=== PATIENT | female | born 1990 | race African-American/Black ===

== ENCOUNTER 2019-02-19 16:20 | Emergency (ER) | payer MEDICAID ==
[2019-02-19] MEDS ORDERED: ACETAMINOPHEN 325 MG TABLET PO ONE (17:53)
--- NOTE | 2019-02-19 17:55 | ER Document Report ---
ED Medical Screen (RME) - General Chief Complaint: Vag Bleeding, +preg <12wks Stated Complaint: VAGINAL BLEEDING Time Seen by Provider: 02/19/19 17:52 Primary Care Provider: NAWAF ALANIZ MD [Primary Care Provider] - Follow up as needed Mode of Arrival: Ambulatory Information source: Patient Notes: 28-year-old female presents to ED for pelvic pain vaginal bleeding. She states the bleeding started about 315 this afternoon. She states she had a positive IUP last week but she started bleeding today. Last menstrual period was December 06. She states she does not sure of her blood type. Patient is alert oriented respirations regular and unlabored speaking in full sentences walks with even steady gait. I have greeted and performed a rapid initial assessment of this patient. A comprehensive ED assessment and evaluation of the patient, analysis of test results and completion of medical decision making process will be conducted by an additional ED providers. Dictation of this chart was performed using voice recognition software; therefore, there may be some unintended grammatical errors. TRAVEL OUTSIDE OF THE [place] IN LAST 30 DAYS: No - Related Data Allergies/Adverse Reactions: No Known Allergies Allergy (Verified 08/27/16 11:43) Past Medical History - Immunizations Immunizations up to date: Yes Hx Diphtheria, Pertussis, Tetanus Vaccination: Yes Doctor's Discharge - Discharge Referrals: NAWAF ALANIZ MD [Primary Care Provider] - Follow up as needed
[2019-02-19 18:39] LABS: APPEARANCE,URINE CLEAR; BILIRUBIN,URINE NEGATIVE (NEGATIVE); COLOR,URINE YELLOW; GLUCOSE, URINE NEGATIVE (NEGATIVE); KETONES,URINE TRACE mg/dL (NEGATIVE); LEUKOCYTE ESTERASE,URINE NEGATIVE (NEGATIVE); NITRITE,URINE NEGATIVE (NEGATIVE); PROTEIN,URINE NEGATIVE (NEGATIVE); URINE SPECIFIC GRAVITY 1.011; UROBILINOGEN,URINE NEGATIVE mg/dL (<2.0)
[2019-02-19 18:46] LABS: ABSOLUTE BASOPHILS # (AUTO) 0.1 10^3/uL (0.0-0.2); ABSOLUTE EOSINOPHILS # (AUTO) 0.1 10^3/uL (0.0-0.6); ABSOLUTE LYMPHOCYTES (AUTO) 3.1 10^3/uL (0.5-4.7); ABSOLUTE MONOCYTES (AUTO) 0.7 10^3/uL (0.1-1.4); ABSOLUTE NEUT (AUTO) 7.6 10^3/uL (1.7-8.2); BASOPHILS % (AUTO) 0.5 % (0-2); EOSINOPHILS % (AUTO) 0.9 % (0-6); HEMATOCRIT 35.7 % (36.0-47.0); HEMOGLOBIN 11.8 g/dL (12.0-15.5); LYMPHOCYTES % (AUTO) 26.7 % (13-45); MEAN CORPUSCULAR HEMOGLOBIN 29.7 pg (27.0-33.4); MEAN CORPUSCULAR HGB CONC 33.2 g/dL (32.0-36.0); MEAN CORPUSCULAR VOLUME 90 fl (80-97); MONOCYTES % (AUTO) 5.7 % (3-13); PLATELET COUNT 327 10^3/uL (150-450); RED BLOOD COUNT 3.98 10^6/uL (3.72-5.28); RED CELL DISTRIBUTION WIDTH 13.9 % (11.5-14.0); SEGMENTED NEUTROPHILS % (AUTO) 66.2 % (42-78); TOTAL CELLS COUNTED % (AUTO) 100 %; WHITE BLOOD COUNT 11.5 10^3/uL (4.0-10.5)
[2019-02-19 19:14] LABS: ALANINE AMINOTRANSFERASE 25 U/L (9-52); ALBUMIN 4.3 g/dL (3.5-5.0); ALKALINE PHOSPHATASE 24 U/L (38-126); ANION GAP 12 (5-19); ASPARTATE AMINO TRANSFERASE 19 U/L (14-36); BILIRUBIN,DIRECT 0.1 mg/dL (0.0-0.4); BILIRUBIN,TOTAL 0.1 mg/dL (0.2-1.3); BLOOD UREA NITROGEN 7 mg/dL (7-20); CALCIUM 9.9 mg/dL (8.4-10.2); CARBON DIOXIDE 27 mmol/L (22-30); CHLORIDE 99 mmol/L (98-107); GLUCOSE 77 mg/dL (75-110); POTASSIUM 3.9 mmol/L (3.6-5.0); SODIUM 137.8 mmol/L (137-145); TOTAL PROTEIN 7.5 g/dL (6.3-8.2)
--- NOTE | 2019-02-19 20:10 | RADIOLOGY REPORT (SQ) ---
US PELVIS HISTORY: Early . Pelvic pain. COMPARISON: None. TECHNIQUE: Grayscale, color Doppler, and spectral Doppler ultrasound images of the pelvis were obtained. FINDINGS: There is an intrauterine gestational sac with a yolk sac and pole visualized. The crown-rump length measures 3.29 cm corresponding to 10 weeks 1 day of . The heart rate is 169 bpm. The cervix measures 3 cm in length. There is an adjacent 1.3 cm subchorionic hemorrhage. IMPRESSION: 1. Single live IUP with estimated gestational age 10 weeks 1 day. 2. Small adjacent subchronic hemorrhage; attention on follow-up imaging is suggested.
--- NOTE | 2019-02-19 21:23 | ER Document Report ---
ED GI/ - General Chief Complaint: Vag Bleeding, +preg <12wks Stated Complaint: VAGINAL BLEEDING Time Seen by Provider: 02/19/19 17:52 Primary Care Provider: NAWAF ALANIZ MD [ACTIVE STAFF] - Follow up as needed Mode of Arrival: Ambulatory Notes: Patient is a 28 year old female, at uncertain gestational age, that comes to the Emergency Department for chief complaint of vaginal bleeding and cramping that started this afternoon. Bleeding is mild with small amount of spotting. Denies heavy bleeding, denies trauma, denies fever/chills, denies nausea/vomiting. She denies any diagnosed medical problems except for preeclampsia during her first . She denies any complaints or medical history otherwise. TRAVEL OUTSIDE OF THE [place] IN LAST 30 DAYS: No - Related Data Allergies/Adverse Reactions: No Known Allergies Allergy (Verified 08/27/16 11:43) Past Medical History - General Information source: Patient - Social History Smoking Status: Current Every Day Smoker Chew tobacco use (# tins/day): No Smoking Education Provided: Yes - <3 min Frequency of alcohol use: None Drug Abuse: None Lives with: Family Family History: Reviewed & Not Pertinent Patient has suicidal ideation: No Patient has homicidal ideation: No Renal/ Medical History: Denies: Hx Peritoneal Dialysis Surgical Hx: Negative - Immunizations Immunizations up to date: Yes Hx Diphtheria, Pertussis, Tetanus Vaccination: Yes Review of Systems - Review of Systems Constitutional: No symptoms reported EENT: No symptoms reported Cardiovascular: No symptoms reported Respiratory: No symptoms reported Gastrointestinal: See HPI Genitourinary: See HPI Female Genitourinary: See HPI Musculoskeletal: No symptoms reported Skin: No symptoms reported Hematologic/Lymphatic: No symptoms reported Neurological/Psychological: No symptoms reported Physical Exam - Vital signs Vitals: Temp Pulse Resp BP Pulse Ox 98.7 F 77 16 142/84 H 98 02/19/19 17:03 02/19/19 17:03 02/19/19 17:03 02/19/19 17:03 02/19/19 17:03 - Notes Notes: GENERAL: Alert, interacts well. No acute distress. HEAD: Normocephalic, atraumatic. EYES: Pupils equal, round, and reactive to light. Extraocular movements intact. ENT: Oral mucosa moist, tongue midline. Oropharynx unremarkable. Airway patent. Nares patent, no nasal septal hematoma, TM's intact. NECK: Full range of motion. Supple. Trachea midline. LUNGS: Clear to auscultation bilaterally, no wheezes, rales, or rhonchi. No respiratory distress. HEART: Regular rate and rhythm. No murmur ABDOMEN: Soft, non-tender. Non-distended. Bowel sounds present in all 4 quadrants. GENITOURINARY: Deferred EXTREMITIES: Moves all 4 extremities spontaneously. No edema, normal radial and dorsalis pedis pulses bilaterally. No cyanosis. BACK: no cervical, thoracic, lumbar midline tenderness. No saddle anesthesia, normal distal neurovascular exam. NEUROLOGICAL: Alert and oriented x3. Normal speech. Cranial nerves II through XII grossly intact. PSYCH: Normal affect, normal mood. SKIN: Warm, dry, normal turgor. No rashes or lesions noted. Course - Re-evaluation Re-evalutation: Patient well-appearing. Unremarkable vital signs. CBC unremarkable. Chemistry nonspecific. hCG elevated. Urinalysis nonspecific. Patient's abdomen is completely benign. She currently has no complaints. I discussed ultrasound, this shows small subchorionic bleed, living intrauterine , no other abnormalities noted at this time. RhoGam is not indicated. Discussed precautions, provided with work-release, discussed follow-up and return precautions as well. Patient states understanding and agreement. - Vital Signs Vital signs: Temp Pulse Resp BP Pulse Ox 98.1 F 72 20 132/60 H 100 02/19/19 22:32 02/19/19 22:32 02/19/19 22:32 02/19/19 22:32 02/19/19 22:32 - Laboratory Result Diagrams: 02/19/19 18:21 02/19/19 18:21 Laboratory results interpreted by me: 02/19/19 02/19/19 02/19/19 18:21 18:21 18:21 WBC 11.5 H Hgb 11.8 L Hct 35.7 L Total Bilirubin 0.1 L Alkaline Phosphatase 24 L Beta HCG, Quant 66339.00 H Urine Ketones TRACE H Urine Blood SMALL H Discharge - Discharge Clinical Impression: Vaginal bleeding before 22 weeks gestation, Pelvic cramping Condition: Stable Disposition: HOME, SELF-CARE Additional Instructions: Your work-up shows a subchorionic hemorrhage as we discussed. This frequently resolves with time. Please follow-up with your STRETCH PRESS OPERATOR for additional monitoring and management. I recommend pelvic rest to help this resolve, avoid any heavy lifting, jumping, running, or significant physical activity including sexual intercourse until cleared by STRETCH PRESS OPERATOR. Return for any concerning symptoms including severe worsening pain, heavy bleeding, passing out, or any other concerning or worsening symptoms. Forms: Return to Work Referrals: NAWAF ALANIZ MD [ACTIVE STAFF] - Follow up as needed
[2019-02-19 22:36] VITALS: BP 142/84
== END 2019-02-19 22:36 | disposition home or self-care (01) ==
LOC: ER 16:20
DX: O46.91 Antepartum hemorrhage, unspecified, first trimester (principal); O26.891 Other specified pregnancy related conditions, first trimester; R10.2 Pelvic and perineal pain; O99.331 Smoking (tobacco) complicating pregnancy, first trimester; Z3A.18 18 weeks gestation of pregnancy
CPT/HCPCS: 99284; 86900; 86901; 36415; 84702; 85025; 80053; 81001; 76817; J3490

== ENCOUNTER 2019-08-07 14:16 | Outpatient (CLI) | payer MEDICAID ==
[2019-08-07] MEDS ORDERED: ACETAMINOPHEN 325 MG TABLET PO PRN (14:23)
[2019-08-07 14:51] LABS: APPEARANCE,URINE CLEAR; BILIRUBIN,URINE NEGATIVE (NEGATIVE); COLOR,URINE YELLOW; GLUCOSE, URINE NEGATIVE (NEGATIVE); KETONES,URINE NEGATIVE (NEGATIVE); LEUKOCYTE ESTERASE,URINE NEGATIVE (NEGATIVE); NITRITE,URINE NEGATIVE (NEGATIVE); PROTEIN,URINE NEGATIVE (NEGATIVE); URINE SPECIFIC GRAVITY 1.003; UROBILINOGEN,URINE NEGATIVE mg/dL (<2.0)
[2019-08-07 15:06] LABS: URINE AMPHETAMINES SCREEN NEGATIVE; URINE BARBITURATES SCREEN NEGATIVE; URINE BENZODIAZEPINES SCREEN NEGATIVE; URINE COCAINE SCREEN NEGATIVE; URINE METHADONE SCREEN NEGATIVE; URINE PHENCYCLIDINE SCREEN NEGATIVE
[2019-08-07] MEDS ORDERED: ACETAMINOPHEN 325 MG TABLET ONE (15:06)
[2019-08-07 15:08] LABS: URINE MARIJUANA (THC) SCREEN UNCONFIRMED POSITIVE
[2019-08-07 15:12] LABS: HEMATOCRIT 32.6 % (36.0-47.0); HEMOGLOBIN 11.1 g/dL (12.0-15.5); MEAN CORPUSCULAR HEMOGLOBIN 30.4 pg (27.0-33.4); MEAN CORPUSCULAR VOLUME 90 fl (80-97); PLATELET COUNT 284 10^3/uL (150-450); RED BLOOD COUNT 3.64 10^6/uL (3.72-5.28); RED CELL DISTRIBUTION WIDTH 13.8 % (11.5-14.0); WHITE BLOOD COUNT 12.2 10^3/uL (4.0-10.5)
[2019-08-07 15:20] LABS: UR PRO/CREAT RATIO RESULT 0.4 mg/mg (0.0-0.2); URINE CREATININE 40.8 mg/dL (16-327); URINE PROTEIN 17.7 mg/dL (<12)
[2019-08-07 15:38] LABS: ALBUMIN 3.6 g/dL (3.5-5.0); ALKALINE PHOSPHATASE 84 U/L (38-126); ANION GAP 8 (5-19); ASPARTATE AMINO TRANSFERASE 19 U/L (14-36); BILIRUBIN,DIRECT 0.1 mg/dL (0.0-0.4); BILIRUBIN,TOTAL 0.3 mg/dL (0.2-1.3); BLOOD UREA NITROGEN 7 mg/dL (7-20); CALCIUM 9.2 mg/dL (8.4-10.2); CARBON DIOXIDE 23 mmol/L (22-30); CHLORIDE 104 mmol/L (98-107); GLUCOSE 92 mg/dL (75-110); POTASSIUM 4.2 mmol/L (3.6-5.0); TOTAL PROTEIN 6.8 g/dL (6.3-8.2)
[2019-08-07] MEDS ORDERED: NIFEDIPINE 30 MG TAB.ER.24 PO ONE (16:10)
--- NOTE | 2019-08-07 16:52 | Non Stress Test Report ---
Non Stress Test Datetime Report Generated by CPN: 08/07/2019 16:51 DEMOGRAPHIC EGA NST: 34.6 INDICATION Indication for Study: Ordered by Provider Indication for Study (NST) Other: PRE-E W/U MONITORING Monitor Explained: Monitor Explained; Test Explained; Patient Verbalized Understanding Time on Monitor: 08/07/2019 14:30 NST INTERVENTIONS NST Interventions: PO Hydration; Reposition Patient BABY A: [id number] BABY A Movement : Present Contraction Frequency : 0 NST Review: Meets Criteria for Reactive NST NST Review and Verified By : M Sasala RN NST Results: Reactive NST REPORT Report Trigger: Send Report
== END 2019-08-07 16:23 | disposition home or self-care (01) ==
LOC: LC 14:16
PROVIDERS: ATTEND Obstetrics & Gynecology
PROC: 4A1HXCZ Monitoring of Products of Conception, Cardiac Rate, External Approach (ICD-10-PCS; principal; 2019-08-07)
DX: Z36.89 Encounter for other specified antenatal screening (principal); Z13.6 Encounter for screening for cardiovascular disorders; Z3A.36 36 weeks gestation of pregnancy
CPT/HCPCS: 59025; 36415; 83615; 84156; 84550; 82570; 85027; 80053; 81001; 80307; G0480 ×2; J3490; 80349

== ENCOUNTER 2019-08-08 17:14 | Observation (INO) | payer MEDICAID ==
[2019-08-08 19:06] LABS: URINE PROTEIN 14.7 mg/dL (<12)
[2019-08-08 19:08] LABS: 24 HOUR URINE PROTEIN RESULT 426 mg/day (42-225)
[2019-08-08] MEDS ORDERED: ONDANSETRON HCL INJ/PF 4 MG/2 ML SDV IV PRN (19:19)
[2019-08-08] MEDS ORDERED: RINGERS SOLUTION,LACTATED 1,000 ML IV ONE (19:19)
[2019-08-08] MEDS ORDERED: BETAMET ACET/BETAMET NA INJ 6 MG/1 ML IM ONE (19:21)
[2019-08-08] MEDS ORDERED: BETAMET ACET/BETAMET NA INJ 6 MG/1 ML ONE ×2 (19:23→19:56)
[2019-08-08] MEDS ORDERED: ONDANSETRON HCL INJ/PF 4 MG/2 ML SDV ONE (19:23)
--- NOTE | 2019-08-08 19:30 | Non Stress Test Report ---
Non Stress Test Datetime Report Generated by CPN: 08/08/2019 19:29 DEMOGRAPHIC Test Number: 2 EGA NST: 35.0 INDICATION Indication for Study: Gestational Hypertension VITAL SIGNS Temperature - NST: 99.4 Pulse - NST: 74 RESP - NST: 16 NBPSYS NST: 118 NBPDIA NST: 60 MONITORING Monitor Explained: Monitor Explained; Test Explained; Patient Verbalized Understanding Time on Monitor: 08/08/2019 17:24 Time off Monitor: 08/08/2019 18:30 NST Duration: 66 NST INTERVENTIONS NST Interventions: PO Hydration Physician Notified NST: Dr Sandoval BABY A: [id number] BABY A Movement : Present Contraction Frequency : 0 FHR Baseline : 125 Accelerations : 15X15 Variability : Moderate 6-25bpm NST Review: Meets Criteria for Reactive NST NST Review and Verified By : Carolyn Camp RNC NST Results: Reactive NST REPORT Report Trigger: Send Report
[2019-08-08] MEDS ORDERED: BUTALB/ACETAMINOPHEN/CAFFEINE 1 TAB EACH ONE (19:47)
[2019-08-08] MEDS: BUTALB/ACETAMINOPHEN/CAFFEINE 1 TAB EACH PO PRN (19:48)
[2019-08-08] MEDS: RINGERS SOLUTION,LACTATED 1,000 ML IV PRN (19:49)
[2019-08-08 19:54] LABS: HEMATOCRIT 31.3 % (36.0-47.0); HEMOGLOBIN 10.7 g/dL (12.0-15.5); MEAN CORPUSCULAR HEMOGLOBIN 30.6 pg (27.0-33.4); MEAN CORPUSCULAR HGB CONC 34.3 g/dL (32.0-36.0); MEAN CORPUSCULAR VOLUME 89 fl (80-97); PLATELET COUNT 295 10^3/uL (150-450); RED BLOOD COUNT 3.51 10^6/uL (3.72-5.28); RED CELL DISTRIBUTION WIDTH 13.7 % (11.5-14.0); WHITE BLOOD COUNT 14.1 10^3/uL (4.0-10.5)
[2019-08-08 20:04] LABS: ALBUMIN 3.7 g/dL (3.5-5.0); ALKALINE PHOSPHATASE 92 U/L (38-126); ANION GAP 11 (5-19); ASPARTATE AMINO TRANSFERASE 20 U/L (14-36); BILIRUBIN,DIRECT 0.1 mg/dL (0.0-0.4); BILIRUBIN,TOTAL 0.3 mg/dL (0.2-1.3); BLOOD UREA NITROGEN 5 mg/dL (7-20); CALCIUM 9.5 mg/dL (8.4-10.2); CARBON DIOXIDE 21 mmol/L (22-30); CHLORIDE 105 mmol/L (98-107); GLUCOSE 79 mg/dL (75-110); POTASSIUM 4.4 mmol/L (3.6-5.0); TOTAL PROTEIN 6.9 g/dL (6.3-8.2); URIC ACID 3.8 mg/dL (2.5-6.2)
[2019-08-08] MEDS ORDERED: ZOLPIDEM TARTRATE 5 MG TABLET PO PRN (21:01)
[2019-08-09] MEDS: FAMOTIDINE 20 MG TABLET PO SCH ×3 (00:11→21:00)
[2019-08-09] MEDS: ACETAMINOPHEN 325 MG TABLET PO PRN ×3 (03:41→20:52)
[2019-08-09] MEDS: RINGERS SOLUTION,LACTATED 1,000 ML IV PRN (03:44)
[2019-08-09 06:13] LABS: HEMATOCRIT 31.9 % (36.0-47.0); HEMOGLOBIN 10.7 g/dL (12.0-15.5); MEAN CORPUSCULAR HEMOGLOBIN 30.2 pg (27.0-33.4); MEAN CORPUSCULAR HGB CONC 33.5 g/dL (32.0-36.0); MEAN CORPUSCULAR VOLUME 90 fl (80-97); PLATELET COUNT 262 10^3/uL (150-450); RED BLOOD COUNT 3.54 10^6/uL (3.72-5.28); RED CELL DISTRIBUTION WIDTH 13.9 % (11.5-14.0); WHITE BLOOD COUNT 12.4 10^3/uL (4.0-10.5)
[2019-08-09] MEDS ORDERED: BETAMET ACET/BETAMET NA INJ 6 MG/1 ML IM ONE (07:30)
--- NOTE | 2019-08-09 09:06 | PDOC PROGRESS REPORT ---
Subjective Progress Note for:: 08/09/19 Subjective:: pt states she feels better Reason For Visit: chronic HTN Physical Exam - Physical Exam Vital Signs: Temp Pulse Resp BP Pulse Ox 98.1 F 88 16 143/80 H 99 08/09/19 07:51 08/09/19 07:51 08/09/19 07:51 08/09/19 07:51 08/09/19 07:51 Intake & Output 08/08/19 08/09/19 08/10/19 06:59 06:59 06:59 Intake Total 1230 Balance 1230 Weight 119.2 kg General appearance: PRESENT: no acute distress Respiratory exam: PRESENT: clear to auscultation dash Cardiovascular exam: PRESENT: RRR GI/Abdominal exam: PRESENT: soft Result Laboratory Results: 08/09/19 05:54 08/08/19 19:38 08/07/19 08/08/19 08/08/19 16:00 19:38 19:38 WBC 14.1 H RBC 3.51 L Hgb 10.7 L Hct 31.3 L MCV 89 MCH 30.6 MCHC 34.3 RDW 13.7 Plt Count 295 Sodium 136.6 L Potassium 4.4 Chloride 105 Carbon Dioxide 21 L Anion Gap 11 BUN 5 L Creatinine 0.75 Est GFR ( Amer) > 60 Glucose 79 Uric Acid 3.8 Calcium 9.5 Total Bilirubin 0.3 AST 20 Alkaline Phosphatase 92 Total Protein 6.9 Albumin 3.7 Ur 24 Hour Volume 2900 Ur Total Protein 24 Hr 426 H 08/09/19 05:54 WBC 12.4 H RBC 3.54 L Hgb 10.7 L Hct 31.9 L MCV 90 MCH 30.2 MCHC 33.5 RDW 13.9 Plt Count 262 Sodium Potassium Chloride Carbon Dioxide Anion Gap BUN Creatinine Est GFR ( Amer) Glucose Uric Acid Calcium Total Bilirubin AST Alkaline Phosphatase Total Protein Albumin Ur 24 Hour Volume Ur Total Protein 24 Hr Assessment & Plan - Diagnosis (1) Obesity affecting in third trimester Is this a current diagnosis for this admission?: Yes (2) Preeclampsia complicating hypertension Is this a current diagnosis for this admission?: Yes - Time Time Spent with patient: Less than 15 minutes Medications reviewed and adjusted accordingly: Yes - Plan Summary Plan Summary: second dose of steroids today repeat labs in am and dispose pending condition and labs
[2019-08-09] MEDS: VALACYCLOVIR HCL 500 MG TABLET PO SCH (09:32)
[2019-08-09] MEDS: NIFEDIPINE 30 MG TAB.ER.24 PO SCH (09:32)
[2019-08-09] MEDS ORDERED: INFLUENZA QUAD (6MOS+) 2019-20 VAC 0.5 ML SYR IM ONE (10:00)
--- NOTE | 2019-08-09 11:34 | Admission Physical ---
Datetime Report Generated by CPN: 08/09/2019 11:34 CURRENT ADMISSION Chief Complaint: Signs/Symptoms Gestational HTN Chief Complaint Other: KULKARNI 4/5 Admit Impression : , Intrauterine Admit Plan: Observation/Evaluation ALLERGIES Medication Allergies: No Medication Allergies: No Known Allergies (08/08/2019) Medication Allergies: No Known Allergies (08/07/2019) Medication Allergies: No Known Allergies (08/27/2016) Latex: No Latex Allergies OBSTETRICAL HISTORY EDC: 09/12/2019 00:00 : 2 Para: 1 Term: 1 : 1 SAB: 0 IAB: 0 Ectopic: 0 Livin Cesareans: 1 VBACs: 0 Multiple Births: 0 Hx Previous C/S: Yes PIH: Yes Current Procedures: Ultrasound; NST Obstetrical History Comments: G (Annotations: Data stored by [facility] on behalf of user) SEE RECORDS Alcohol: No Marijuana : Yes Marijuana Frequency: Occasional Last Used: 07/26/2019 00:00 Previous Treatment: None Other Illicit Drugs: No Cigarettes: Current Everyday Smoker. [id number] Cigarette Frequency: 5 - 10 per day Advised to Stop: Yes PHYSICAL EXAM General: Normal HEENT: Normal Neurologic: Normal Thyroid: Deferred Heart: Normal Lungs: Normal Breast: Deferred Back: Normal Abdomen: Normal Genitourinary Exam: Normal Extremities: Normal DTRs: Normal Pelvic Type: Adequate Vital Signs: Reviewed MEMBRANES Membranes: Intact FETUS A EGA: 35.0 Monitoring: External US FHR- Baseline: 145 Variability: Moderate 6-25bpm Accelerations: 15X15 Decelerations: None FHR Category: Category I Admit Comment: 26yo at 35wks presents for return of 24 hour UTP. she had preE with 1st and then failed IOL with C/S. SHe has a 4/5 KULKARNI that she has had since yesterday but has been vomiting all day. Will admit for observation and treat KULKARNI and nausea/vomiting and try to get KULKARNI to resolve. BPs are doing well on Labetolol and Procardia. CHTN on labetolol and procardia added yesterday on day prior. repeat labs in am. 24 hr UTP was over 400 but her baseline April 2019 was 472mg. Will re-eval in am. PLANS FOR LABOR AND DELIVERY Labor and Delivery: None Pain Management: Spinal Feeding Preference: Breast Benefit of Breast Feed Discussed: Yes Circumcision: N/A INFORMED CONSENT Informed Consent Obtained: Section Delivery; Risks, Benefits and Alternatives Discussed Signature: with User ID: [email or web address]
[2019-08-09] MEDS: BUTALB/ACETAMINOPHEN/CAFFEINE 1 TAB EACH PO PRN (16:16)
[2019-08-09] MEDS ORDERED: HYDROXYZINE PAMOATE 25 MG CAPSULE PO ONE ×2 (19:30→21:00)
[2019-08-10] MEDS: ACETAMINOPHEN 325 MG TABLET PO PRN (07:55)
[2019-08-10] MEDS: RINGERS SOLUTION,LACTATED 1,000 ML IV PRN (07:55)
[2019-08-10 08:08] LABS: ALKALINE PHOSPHATASE 77 U/L (38-126); ASPARTATE AMINO TRANSFERASE 15 U/L (14-36); BILIRUBIN,DIRECT 0.1 mg/dL (0.0-0.4); BILIRUBIN,TOTAL 0.2 mg/dL (0.2-1.3); TOTAL PROTEIN 5.8 g/dL (6.3-8.2)
[2019-08-10] MEDS: VALACYCLOVIR HCL 500 MG TABLET PO SCH (10:30)
[2019-08-10] MEDS: NIFEDIPINE 30 MG TAB.ER.24 PO SCH (10:30)
[2019-08-10] MEDS: FAMOTIDINE 20 MG TABLET PO SCH (10:31)
--- NOTE | 2019-08-10 11:18 | Discharge Summary ---
Discharge Summary (SDC) - Discharge Final Diagnosis: Pyelonephritis in pregancy Date of Surgery: 08/10/19 Discharge Date: 08/10/19 Condition: Stable Treatment or Instructions: Hydrate F/u in office within 1 wk Referrals: [facility] [Provider Group] Discharge Diet: Regular Discharge Activity: Activity As Tolerated Home Care Assistance: None Needed Report the Following to Your Physician Immediately: Nausea, Vomiting, Increase in Pain, Fever over 101 Degrees, Swelling
[2019-08-10] MEDS ORDERED: DIPHENHYDRAMINE HCL 50 MG CAPSULE PO ONE (12:13)
[2019-08-10] MEDS ORDERED: METOCLOPRAMIDE HCL 10 MG TABLET PO ONE (12:13)
[2019-08-10] MEDS ORDERED: DEXAMETHASONE 4 MG TABLET PO ONE (12:14)
[2019-08-10 15:36] VITALS: BP 144/71
== END 2019-08-10 15:50 | disposition home or self-care (01) ==
LOC: LC 17:14 → EEVIPCON 21:03 → LR 21:03 → 2S 22:40
PROVIDERS: ADMIT Student in an Organized Health Care Education/Training Program; ATTEND Student in an Organized Health Care Education/Training Program
DX: O11.3 Pre-existing hypertension with pre-eclampsia, third trimester (principal); O10.913 Unspecified pre-existing hypertension complicating pregnancy, third trimester; O99.213 Obesity complicating pregnancy, third trimester; E66.9 Obesity, unspecified; O99.333 Smoking (tobacco) complicating pregnancy, third trimester; F17.210 Nicotine dependence, cigarettes, uncomplicated; Z3A.35 35 weeks gestation of pregnancy; Z87.59 Personal history of other complications of pregnancy, childbirth and the puerperium; Z79.82 Long term (current) use of aspirin; Z79.899 Other long term (current) drug therapy; Z23 Encounter for immunization
CPT/HCPCS: 59025 ×2; 36415 ×3; 83615; 84156; 84550; 85027 ×2; 87077; 80076; 80053; 87081; 90686; G0378 ×4; J3490 ×15; J0702 ×2; J2405; J7120 ×2; 90471; G0008; J8540

== ENCOUNTER 2019-08-12 20:06 | Outpatient (CLI) | payer MEDICAID ==
--- NOTE | 2019-08-12 20:15 | Admission Physical ---
Datetime Report Generated by CPN: 08/12/2019 20:15 CURRENT ADMISSION Chief Complaint: Signs/Symptoms Gestational HTN Chief Complaint Other: KULKARNI 4/5 Admit Impression : , Intrauterine Admit Plan: Observation/Evaluation ALLERGIES Medication Allergies: No Medication Allergies: No Known Allergies (08/08/2019) Latex: No Latex Allergies OBSTETRICAL HISTORY EDC: 09/12/2019 00:00 : 2 Para: 1 Term: 1 : 1 SAB: 0 IAB: 0 Ectopic: 0 Livin Cesareans: 1 VBACs: 0 Multiple Births: 0 Hx Previous C/S: Yes PIH: Yes Current Procedures: Ultrasound; NST Obstetrical History Comments: G (Annotations: Data stored by N on behalf of user) SEE RECORDS Alcohol: No Marijuana : Yes Marijuana Frequency: Occasional Last Used: 07/26/2019 00:00 Previous Treatment: None Other Illicit Drugs: No Cigarettes: Current Everyday Smoker. [id number] Cigarette Frequency: 5 - 10 per day Advised to Stop: Yes PHYSICAL EXAM General: Normal HEENT: Normal Neurologic: Normal Thyroid: Deferred Heart: Normal Lungs: Normal Breast: Deferred Back: Normal Abdomen: Normal Genitourinary Exam: Normal Extremities: Normal DTRs: Normal Pelvic Type: Adequate Vital Signs: Reviewed MEMBRANES Membranes: Intact FETUS A EGA: 35.0 Monitoring: External US FHR- Baseline: 145 Variability: Moderate 6-25bpm Accelerations: 15X15 Decelerations: None FHR Category: Category I Admit Comment: 26yo at 35wks presents for return of 24 hour UTP. she had preE with 1st and then failed IOL with C/S. SHe has a 4/5 KULKARNI that she has had since yesterday but has been vomiting all day. Will admit for observation and treat KULKARNI and nausea/vomiting and try to get KULKARNI to resolve. BPs are doing well on Labetolol and Procardia. CHTN on labetolol and procardia added yesterday on day prior. repeat labs in am. 24 hr UTP was over 400 but her baseline April 2019 was 472mg. Will re-eval in am. PLANS FOR LABOR AND DELIVERY Labor and Delivery: None Pain Management: Spinal Feeding Preference: Breast Benefit of Breast Feed Discussed: Yes Circumcision: N/A INFORMED CONSENT Informed Consent Obtained: Section Delivery; Risks, Benefits and Alternatives Discussed Signature: with User ID: [email or web address]
[2019-08-12 20:45] LABS: APPEARANCE,URINE CLEAR; BILIRUBIN,URINE NEGATIVE (NEGATIVE); COLOR,URINE YELLOW; GLUCOSE, URINE NEGATIVE (NEGATIVE); KETONES,URINE NEGATIVE (NEGATIVE); LEUKOCYTE ESTERASE,URINE NEGATIVE (NEGATIVE); NITRITE,URINE NEGATIVE (NEGATIVE); PROTEIN,URINE NEGATIVE (NEGATIVE); URINE SPECIFIC GRAVITY 1.015; UROBILINOGEN,URINE NEGATIVE mg/dL (<2.0)
[2019-08-12] MEDS ORDERED: DIPHENHYDRAMINE HCL 25 MG CAPSULE ONE (20:47)
[2019-08-12] MEDS ORDERED: METOCLOPRAMIDE HCL 10 MG TABLET PO ONE (20:50)
[2019-08-12 20:58] LABS: URINE AMPHETAMINES SCREEN NEGATIVE; URINE BENZODIAZEPINES SCREEN NEGATIVE; URINE COCAINE SCREEN NEGATIVE; URINE METHADONE SCREEN NEGATIVE; URINE PHENCYCLIDINE SCREEN NEGATIVE
[2019-08-12] MEDS ORDERED: METOCLOPRAMIDE HCL ORAL SOLN 10 MG/10 ML UDCUP ONE (21:01)
[2019-08-12 21:02] LABS: URINE BARBITURATES SCREEN UNCONFIRMED POSITIVE; URINE MARIJUANA (THC) SCREEN UNCONFIRMED POSITIVE
[2019-08-12] MEDS ORDERED: METOCLOPRAMIDE HCL ORAL SOLN 10 MG/10 ML UDCUP PO ONE (21:04)
[2019-08-12] MEDS ORDERED: DIPHENHYDRAMINE HCL 25 MG CAPSULE PO ONE (21:15)
[2019-08-12 21:22] LABS: ABSOLUTE EOSINOPHILS # (AUTO) 0.1 10^3/uL (0.0-0.6); ABSOLUTE LYMPHOCYTES (AUTO) 3.5 10^3/uL (0.5-4.7); ABSOLUTE NEUT (AUTO) 10.1 10^3/uL (1.7-8.2); BASOPHILS % (AUTO) 0.1 % (0-2); EOSINOPHILS % (AUTO) 0.7 % (0-6); HEMATOCRIT 30.6 % (36.0-47.0); HEMOGLOBIN 10.4 g/dL (12.0-15.5); LYMPHOCYTES % (AUTO) 23.6 % (13-45); MEAN CORPUSCULAR HEMOGLOBIN 30.4 pg (27.0-33.4); MEAN CORPUSCULAR HGB CONC 33.9 g/dL (32.0-36.0); MEAN CORPUSCULAR VOLUME 90 fl (80-97); MONOCYTES % (AUTO) 6.9 % (3-13); PLATELET COUNT 264 10^3/uL (150-450); RED BLOOD COUNT 3.42 10^6/uL (3.72-5.28); RED CELL DISTRIBUTION WIDTH 13.7 % (11.5-14.0); SEGMENTED NEUTROPHILS % (AUTO) 68.7 % (42-78); TOTAL CELLS COUNTED % (AUTO) 100 %; WHITE BLOOD COUNT 14.8 10^3/uL (4.0-10.5)
[2019-08-12 21:26] LABS: ALBUMIN 3.3 g/dL (3.5-5.0); ALKALINE PHOSPHATASE 81 U/L (38-126); ANION GAP 9 (5-19); ASPARTATE AMINO TRANSFERASE 16 U/L (14-36); BILIRUBIN,DIRECT 0.1 mg/dL (0.0-0.4); BILIRUBIN,TOTAL 0.1 mg/dL (0.2-1.3); BLOOD UREA NITROGEN 8 mg/dL (7-20); CALCIUM 8.5 mg/dL (8.4-10.2); CARBON DIOXIDE 25 mmol/L (22-30); CHLORIDE 104 mmol/L (98-107); GLUCOSE 79 mg/dL (75-110); POTASSIUM 3.9 mmol/L (3.6-5.0); TOTAL PROTEIN 6.4 g/dL (6.3-8.2); URIC ACID 3.8 mg/dL (2.5-6.2)
[2019-08-12] MEDS ORDERED: MAGNESIUM OXIDE 400 MG TABLET PO ONE (23:00)
[2019-08-12] MEDS ORDERED: MAGNESIUM OXIDE 400 MG TABLET PO SCH (23:00)
--- NOTE | 2019-08-13 00:21 | Non Stress Test Report ---
Non Stress Test Datetime Report Generated by CPN: 08/13/2019 00:20 DEMOGRAPHIC Test Number: 3 EGA NST: 35.4 INDICATION Indication for Study: Chronic Hypertension; Ordered by Provider VITAL SIGNS Temperature - NST: 97.8 Pulse - NST: 85 RESP - NST: 16 NBPSYS NST: 137 NBPDIA NST: 68 URINE RESULTS Urine Protein, NST: Negative Urine Ketones - NST: Negative Urine Glucose - NST: Negative MONITORING Monitor Explained: Monitor Explained; Test Explained; Patient Verbalized Understanding Time on Monitor: 08/12/2019 20:18 Time off Monitor: 08/12/2019 22:48 NST Duration: 150 NST INTERVENTIONS NST Interventions: None Physician Notified NST: Dr. Eng BABY A: [id number] BABY A Movement : Present Contraction Frequency : rare FHR Baseline : 130 Decelerations : None Variability : Moderate 6-25bpm NST Review: Meets Criteria for Reactive NST NST Review and Verified By : D Bellavance RN NST Results: Reactive NST REPORT Report Trigger: Send Report
[2019-08-13] MEDS ORDERED: MAGNESIUM OXIDE 400 MG TABLET PO SCH (10:00)
== END 2019-08-12 23:08 | disposition home or self-care (01) ==
LOC: LC 20:06
PROVIDERS: ATTEND Obstetrics & Gynecology
PROC: 4A1HXCZ Monitoring of Products of Conception, Cardiac Rate, External Approach (ICD-10-PCS; principal; 2019-08-12)
DX: O10.913 Unspecified pre-existing hypertension complicating pregnancy, third trimester (principal); O99.333 Smoking (tobacco) complicating pregnancy, third trimester; F17.210 Nicotine dependence, cigarettes, uncomplicated; R51 Headache; Z3A.35 35 weeks gestation of pregnancy
CPT/HCPCS: 59025; 36415; 83615; 84550; 85025; 80053; 81001; 80307; G0480 ×2; J3490 ×3; 80349

== ENCOUNTER 2019-08-29 05:25 | Inpatient (IN) | payer MEDICAID ==
[2019-08-28 11:46] LABS: ABSOLUTE EOSINOPHILS # (AUTO) 0.1 10^3/uL (0.0-0.6); ABSOLUTE LYMPHOCYTES (AUTO) 2.2 10^3/uL (0.5-4.7); ABSOLUTE MONOCYTES (AUTO) 0.6 10^3/uL (0.1-1.4); BASOPHILS % (AUTO) 0.1 % (0-2); EOSINOPHILS % (AUTO) 0.9 % (0-6); HEMATOCRIT 32.3 % (36.0-47.0); HEMOGLOBIN 10.9 g/dL (12.0-15.5); LYMPHOCYTES % (AUTO) 18.5 % (13-45); MEAN CORPUSCULAR HEMOGLOBIN 30.3 pg (27.0-33.4); MEAN CORPUSCULAR HGB CONC 33.7 g/dL (32.0-36.0); MEAN CORPUSCULAR VOLUME 90 fl (80-97); PLATELET COUNT 278 10^3/uL (150-450); RED CELL DISTRIBUTION WIDTH 14.1 % (11.5-14.0); SEGMENTED NEUTROPHILS % (AUTO) 75.5 % (42-78); TOTAL CELLS COUNTED % (AUTO) 100 %; WHITE BLOOD COUNT 11.9 10^3/uL (4.0-10.5)
[2019-08-28 11:56] LABS: APPEARANCE,URINE SLIGHTLY-CLOUDY; BILIRUBIN,URINE NEGATIVE (NEGATIVE); COLOR,URINE YELLOW; GLUCOSE, URINE NEGATIVE (NEGATIVE); KETONES,URINE NEGATIVE (NEGATIVE); LEUKOCYTE ESTERASE,URINE NEGATIVE (NEGATIVE); NITRITE,URINE NEGATIVE (NEGATIVE); PROTEIN,URINE NEGATIVE (NEGATIVE); URINE SPECIFIC GRAVITY 1.009; UROBILINOGEN,URINE NEGATIVE mg/dL (<2.0)
[2019-08-28 12:08] LABS: URINE AMPHETAMINES SCREEN NEGATIVE; URINE BARBITURATES SCREEN NEGATIVE; URINE BENZODIAZEPINES SCREEN NEGATIVE; URINE COCAINE SCREEN NEGATIVE; URINE MARIJUANA (THC) SCREEN NEGATIVE; URINE METHADONE SCREEN NEGATIVE; URINE PHENCYCLIDINE SCREEN NEGATIVE
[~2019-08-29 05:25] MED LIST: CEFAZOLIN SODIUM 2 GM in DEXTROSE 5%-WATER 100 ML IV PRN; LACTATED RINGERS 1000 ML IV PRN; LIDOCAINE 0.5% INJ-PF (5 MG/ML) 50 ML SDV SUBCUT PRN; RINGERS SOLUTION,LACTATED 2,000 ML IV ONE
[2019-08-29] MEDS ORDERED: KETAMINE HCL INJ 500 MG/10 ML VIAL ONE (07:05)
[2019-08-29] MEDS ORDERED: LIDOCAINE 2% INJ (20 MG/ML) 20 ML MDV ONE (07:06)
[2019-08-29] MEDS ORDERED: OXYTOCIN/NORMAL SALINE 20 UNIT/1,000 ML RTUINJ ONE (07:32)
[2019-08-29] MEDS ORDERED: PROPOFOL INJ 200 MG/20 ML VIAL IV ONE (07:32)
[2019-08-29] MEDS ORDERED: ACETAMINOPHEN 1,000 MG/100 ML RTUPB IV ONE (07:32)
[2019-08-29] MEDS ORDERED: MIDAZOLAM 2 MG/2 ML INJ ONE (07:32)
[2019-08-29] MEDS ORDERED: DIPHENHYDRAMINE HCL 50 MG/ML VIAL ONE (07:32)
[2019-08-29] MEDS ORDERED: OXYTOCIN 10 UNIT/ML VIAL ONE (07:32)
[2019-08-29] MEDS ORDERED: FENTANYL CITRATE INJ/PF 100 MCG/2 ML AMPUL ONE ×3 (07:32→09:56)
[2019-08-29] MEDS ORDERED: ONDANSETRON HCL INJ/PF 4 MG/2 ML SDV ONE ×2 (07:33→11:15)
[2019-08-29] MEDS ORDERED: MORPHINE SULFATE 10 MG/ML INJ IV PRN (07:54)
[2019-08-29] MEDS ORDERED: FENTANYL CITRATE INJ/PF 100 MCG/2 ML AMPUL IV PRN ×3 (07:54)
[2019-08-29] MEDS ORDERED: DIPHENHYDRAMINE HCL 50 MG/ML VIAL IV PRN (07:54)
[2019-08-29] MEDS ORDERED: PROMETHAZINE HCL INJ 25 MG/1 ML VIAL IV PRN ×2 (07:54→09:12)
[2019-08-29] MEDS ORDERED: OXYCODONE-ACETAMINOPHEN 5-325 MG TABLET PO PRN ×3 (07:54→09:12)
[2019-08-29] MEDS ORDERED: MEPERIDINE HCL/PF INJ 25 MG/1 ML DISP.SYRIN IV PRN (07:54)
[2019-08-29] MEDS ORDERED: ONDANSETRON HCL INJ/PF 4 MG/2 ML SDV IV PRN (07:54)
[2019-08-29] MEDS ORDERED: LIDOCAINE 2% INJ-PF (20 MG/ML) 10 ML AMPUL ONE ×2 (08:06→08:07)
[2019-08-29] MEDS ORDERED: RINGERS SOLUTION,LACTATED 1,000 ML IV PRN (09:12)
[2019-08-29] MEDS ORDERED: OXYTOCIN/NORMAL SALINE 20 UNIT/1,000 ML RTUINJ IV PRN (09:12)
[2019-08-29] MEDS ORDERED: SIMETHICONE 80 MG TAB.CHEW PO PRN (09:12)
[2019-08-29] MEDS ORDERED: DIPH/PERTUSS(ACELL)/TETANUS VAC/PF 0.5 ML SYR (>=10YO) IM PRN (09:12)
[2019-08-29] MEDS ORDERED: ACETAMINOPHEN 325 MG TABLET PO PRN (09:12)
[2019-08-29] MEDS ORDERED: ACETAMINOPHEN 1,000 MG/100 ML RTUPB IV PRN (09:12)
[2019-08-29] MEDS ORDERED: MEASLES,MUMPS&RUBELLA VACC/PF 0.5 ML VIAL SUBCUT PRN (09:12)
--- NOTE | 2019-08-29 09:21 | Operative Report ---
Operative Report DATE OF SURGERY: 08/29/19 PREOPERATIVE DIAGNOSIS: IUP @ 39 wks, previous c/section. POSTOPERATIVE DIAGNOSIS: same OPERATION: repeat low transverse hysterotomy section SURGEON: JERROD DOBSON 1ST MARKETING CONTENT MANAGER: BRUCE GRIMALDO ANESTHESIA: GA COMPLICATIONS: none INTRAOPERATIVE FINDINGS: male, cephalic presentation, dense rectus muscle adhesions, dense peritoneal adhesions, uterine uterine just superior to vesicouterine junction PROCEDURE: PROCEDURE IN DETAIL: The patient was taken to the operating room, prepared and draped in a normal sterile fashion in a supine position with a leftward tilt. A transverse skin incision was made with a scalpel and carried through to the underlying layer of fascia with the same scalpel. The fascia was excised in the midline and extended laterally with Luisa. The fascia was then dissected from the rectus muscle sharply with Luisa and the rectus muscle was divided and the peritoneal cavity was entered sharply with the same Metzenbaum. With good visualization of the bladder and the uterus the bladder blade was inserted. The hysterotomy was nicked with a scalpel and extended laterally with surgeon finger fraction. The was then delivered atraumatically. The nose and mouth were suctioned with a suction bulb, the cord was clamped and cut and handed off to awaiting pediatricians. Cord blood was collected. The placenta was removed manually. The uterus was exteriorized and cleared of clots and debris. The hysterotomy was closed with 0 Monocryl in a running, locked fashion. A second layer of the same suture was used to imbricate to ensure hemostasis. The uterus was returned to the abdomen and peritoneal cavity was cleared of clots and debris. The rectus muscle and peritoneum were repaired with mattress stitch of 2-0 Chromic. The fascia was closed with 0-Vicryl. The subcutaneous layer was closed with plain catgut and the skin was closed with 4-0 Vicryl. The patient tolerated the procedure well. Sponge, lap, and needle counts correct x2 and the patient was taken to recovery in stable condition.
[2019-08-29] MEDS ORDERED: METOPROLOL TARTRATE PF/INJ 5 MG/5 ML SDV IV ONE (09:28)
[2019-08-29] MEDS ORDERED: PROMETHAZINE HCL INJ 25 MG/1 ML VIAL ONE (10:24)
[2019-08-29] MEDS ORDERED: MORPHINE SULFATE 10 MG/ML INJ ONE (10:24)
[2019-08-29] MEDS: MORPHINE SULFATE 10 MG/ML INJ IV PRN ×2 (10:27→16:23)
[2019-08-29] MEDS: DOCUSATE SODIUM 100 MG CAPSULE PO SCH ×2 (10:38→18:18)
[2019-08-29] MEDS: PRENATAL VITAMIN W DHA CAPSULE PO SCH (10:38)
[2019-08-29] MEDS ORDERED: HYDRALAZINE HCL INJ/PF 20 MG/1 ML SDV ONE ×2 (11:12→11:14)
[2019-08-29] MEDS ORDERED: KETOROLAC TROMETHAMINE 60 MG/2 ML SDV ONE (11:15)
[2019-08-29] MEDS ORDERED: DEXAMETHASONE SOD PHOSPHATE INJ 4 MG/1 ML VIAL ONE (11:15)
[2019-08-29] MEDS ORDERED: GLYCOPYRROLATE 1 MG/5 ML VIAL ONE (11:15)
[2019-08-29] MEDS ORDERED: HYDRALAZINE HCL INJ/PF 20 MG/1 ML SDV IV ONE (11:16)
[2019-08-29] MEDS ORDERED: IBUPROFEN 800 MG TABLET PO SCH (12:00)
[2019-08-29] MEDS: OXYCODONE-ACETAMINOPHEN 5-325 MG TABLET PO PRN ×2 (13:20→20:55)
[2019-08-29] MEDS ORDERED: KETOROLAC TROMETHAMINE INJ/PF 30 MG/1 ML SDV IV SCH (14:00)
[2019-08-29] MEDS: KETOROLAC TROMETHAMINE INJ/PF 30 MG/1 ML SDV IV SCH (18:17)
[2019-08-29] MEDS ORDERED: NIFEDIPINE 30 MG TAB.ER.24 PO ONE (23:59)
[2019-08-30] MEDS: KETOROLAC TROMETHAMINE INJ/PF 30 MG/1 ML SDV IV SCH (02:09)
[2019-08-30] MEDS: OXYCODONE-ACETAMINOPHEN 5-325 MG TABLET PO PRN ×4 (02:17→20:27)
[2019-08-30 07:52] LABS: HEMATOCRIT 25.4 % (36.0-47.0); MEAN CORPUSCULAR HEMOGLOBIN 30.1 pg (27.0-33.4); MEAN CORPUSCULAR HGB CONC 33.7 g/dL (32.0-36.0); MEAN CORPUSCULAR VOLUME 90 fl (80-97); PLATELET COUNT 246 10^3/uL (150-450); RED BLOOD COUNT 2.84 10^6/uL (3.72-5.28); RED CELL DISTRIBUTION WIDTH 14.1 % (11.5-14.0); WHITE BLOOD COUNT 14.7 10^3/uL (4.0-10.5)
[2019-08-30 07:55] LABS: HEMOGLOBIN 8.6 g/dL (12.0-15.5)
[2019-08-30] MEDS: PRENATAL VITAMIN W DHA CAPSULE PO SCH (09:38)
[2019-08-30] MEDS: NIFEDIPINE 30 MG TAB.ER.24 PO SCH (09:38)
[2019-08-30] MEDS: DOCUSATE SODIUM 100 MG CAPSULE PO SCH ×2 (09:38→17:57)
[2019-08-30] MEDS: IBUPROFEN 800 MG TABLET PO SCH ×3 (09:39→20:27)
--- NOTE | 2019-08-30 10:06 | PDOC PROGRESS REPORT ---
Subjective-OB Progress Note for:: 08/30/19 - POD#1, doing well, requesting to start back on Valtrex. hx GHTN, s/p Rpt . denies headaches. B+, rubella Immune. Physical Exam (OB) Vital Signs: Temp Pulse Resp BP Pulse Ox 97.9 F 85 14 133/77 H 100 08/30/19 07:10 08/30/19 07:10 08/30/19 07:10 08/30/19 07:10 08/30/19 07:10 Intake & Output 08/29/19 08/30/19 08/31/19 06:59 06:59 06:59 Intake Total 500 Output Total 3400 Balance -2900 Weight 110.949 kg - General General Appearance: Appears well, Alert In distress: None - PIH/Pre-Eclampsia DTR's: 1 + Clonus: Negative Headache: Absent Epigastric Pain: No Visual Changes: No - Dressing Removed: No Incision: Dressing, Well Approximated Closure Type: opsite - Lochia Lochia Amount: Scant < 10 ml Lochia Color: Rubra/Red - Abdomen Description: Soft Hernia Present: No Fundal Description: Firm, Midline Fundal Height: u/u - u/2 - Respiratory Respiratory Status: No respiratory distress Breath sounds: Clear - Cardiovascular Rhythm: Regular Heart Sounds: Normal auscultation - Abdominal Inspection: Normal Distension: No distension Tenderness: Nontender Abdominal Notes: +bowel sounds Objective-Diagnostic Laboratory: 08/30/19 07:14 08/30/19 07:14 WBC 14.7 H RBC 2.84 L Hgb 8.6 L D Hct 25.4 L MCV 90 MCH 30.1 MCHC 33.7 RDW 14.1 H Plt Count 246 Assessment and Plan(PN) - Assessment and Plan (1) Acute blood loss anemia Is this a current diagnosis for this admission?: Yes (2) Elevated blood pressure affecting , antepartum Is this a current diagnosis for this admission?: Yes (3) History of delivery, antepartum Is this a current diagnosis for this admission?: Yes (4) Obesity affecting in third trimester Is this a current diagnosis for this admission?: Yes (5) Preeclampsia complicating hypertension Is this a current diagnosis for this admission?: Yes (6) Pyelonephritis affecting in third trimester Is this a current diagnosis for this admission?: Yes Plan:: ambulation encouraged. Routine Post Op, PP orders - Time Spent with Patient Time with patient: Less than 15 minutes Medications reviewed and adjusted accordingly: Yes - Disposition Anticipated Discharge: Home Within: within 48 hours
[2019-08-30] MEDS: FERROUS SULFATE 325 MG TABLET PO SCH (11:14)
[2019-08-30] MEDS: VALACYCLOVIR HCL 500 MG TABLET PO SCH ×2 (11:14→21:16)
[2019-08-31] MEDS: OXYCODONE-ACETAMINOPHEN 5-325 MG TABLET PO PRN ×2 (02:54→09:06)
[2019-08-31] MEDS: IBUPROFEN 800 MG TABLET PO SCH ×2 (02:54→09:06)
[2019-08-31 07:07] VITALS: BP 124/85
[2019-08-31] MEDS: DOCUSATE SODIUM 100 MG CAPSULE PO SCH (09:05)
[2019-08-31] MEDS: PRENATAL VITAMIN W DHA CAPSULE PO SCH (09:05)
[2019-08-31] MEDS: NIFEDIPINE 30 MG TAB.ER.24 PO SCH (09:05)
[2019-08-31] MEDS: VALACYCLOVIR HCL 500 MG TABLET PO SCH (09:05)
--- NOTE | 2019-08-31 09:10 | PDOC DISCHARGE SUMMARY ---
Impression - Admit/DC Date/PCP Admission Date/Primary Care Provider: 08/29/19 05:25 BENJAMIN DEVINE MD Discharge Date: 08/31/19 - POD #2, desires to go home today, doing well, no complaints. B+, Rubella Immune, , denies headache - Discharge Diagnosis (1) Acute blood loss anemia Is this a current diagnosis for this admission?: Yes (2) Elevated blood pressure affecting , antepartum Is this a current diagnosis for this admission?: Yes (3) History of delivery, antepartum Is this a current diagnosis for this admission?: Yes (4) Obesity affecting in third trimester Is this a current diagnosis for this admission?: Yes (5) Preeclampsia complicating hypertension Is this a current diagnosis for this admission?: Yes (6) Pyelonephritis affecting in third trimester Is this a current diagnosis for this admission?: Yes - Additional Information Resuscitation Status: Full Code Discharge Diet: As Tolerated, Regular Discharge Activity: Activity As Tolerated, No Driving, No Lifting Over 10 Pounds, Pelvic Rest Referrals: BENJAMIN DEVINE MD [Primary Care Provider] - Prescriptions: Ferrous Sulfate [Feosol 325 mg Tablet] 325 mg PO DAILY #30 tablet Ibuprofen [Motrin 800 mg Tablet] 800 mg PO Q6A #60 tablet Oxycodone HCl/Acetaminophen [Percocet 5-325 mg Tablet] 1 tab PO Q4HP PRN #30 tablet PRN Reason: Pain Scale Of 3 Nifedipine [Procardia XL 30 mg Tablet] 60 mg PO DAILY #30 tab Valacyclovir HCl [Valtrex 500 mg Tablet] 500 mg PO DAILY #30 Home Medications: Pnv No.95/Ferrous Fum/Folic AC [ Caplet] 1 tab PO DAILY 08/28/19 Ferrous Sulfate [Feosol 325 mg Tablet] 325 mg PO DAILY #30 tablet 08/31/19 Ibuprofen [Motrin 800 mg Tablet] 800 mg PO Q6A #60 tablet 08/31/19 Nifedipine [Procardia XL 30 mg Tablet] 60 mg PO DAILY #30 tab 08/31/19 Oxycodone HCl/Acetaminophen [Percocet 5-325 mg Tablet] 1 tab PO Q4HP PRN #30 tablet 08/31/19 Valacyclovir HCl [Valtrex 500 mg Tablet] 500 mg PO DAILY #30 08/31/19 HPI Reason(s) for Admission: Ceasarean Section-Repeat Procedures: Ultrasound Intrapartum Procedure(s): : Low Cervical, Transverse Hospital Course Hospital Course: routine Results Laboratory Results: WBC 14.7 10^3/uL (4.0-10.5) H 08/30/19 07:14 RBC 2.84 10^6/uL (3.72-5.28) L 08/30/19 07:14 Hgb 8.6 g/dL (12.0-15.5) L D 08/30/19 07:14 Hct 25.4 % (36.0-47.0) L 08/30/19 07:14 MCV 90 fl (80-97) 08/30/19 07:14 MCH 30.1 pg (27.0-33.4) 08/30/19 07:14 MCHC 33.7 g/dL (32.0-36.0) 08/30/19 07:14 RDW 14.1 % (11.5-14.0) H 08/30/19 07:14 Plt Count 246 10^3/uL (150-450) 08/30/19 07:14 Lymph % (Auto) 18.5 % (13-45) 08/28/19 10:43 Burt % (Auto) 5.0 % (3-13) 08/28/19 10:43 Eos % (Auto) 0.9 % (0-6) 08/28/19 10:43 Baso % (Auto) 0.1 % (0-2) 08/28/19 10:43 Absolute Neuts (auto) 9.0 10^3/uL (1.7-8.2) H 08/28/19 10:43 Absolute Lymphs (auto) 2.2 10^3/uL (0.5-4.7) 08/28/19 10:43 Absolute Monos (auto) 0.6 10^3/uL (0.1-1.4) 08/28/19 10:43 Absolute Eos (auto) 0.1 10^3/uL (0.0-0.6) 08/28/19 10:43 Absolute Basos (auto) 0.0 10^3/uL (0.0-0.2) 08/28/19 10:43 Seg Neutrophils % 75.5 % (42-78) 08/28/19 10:43 Urine Color YELLOW 08/28/19 10:55 Urine Appearance SLIGHTLY-CLOUDY 08/28/19 10:55 Urine pH 7.0 (5.0-9.0) 08/28/19 10:55 Ur Specific [place] 1.009 08/28/19 10:55 Urine Protein NEGATIVE mg/dL (NEGATIVE) 08/28/19 10:55 Urine Glucose (UA) NEGATIVE mg/dL (NEGATIVE) 08/28/19 10:55 Urine Ketones NEGATIVE mg/dL (NEGATIVE) 08/28/19 10:55 Urine Blood NEGATIVE (NEGATIVE) 08/28/19 10:55 Urine Nitrite NEGATIVE (NEGATIVE) 08/28/19 10:55 Urine Bilirubin NEGATIVE (NEGATIVE) 08/28/19 10:55 Urine Urobilinogen NEGATIVE mg/dL (<2.0) 08/28/19 10:55 Ur Leukocyte Esterase NEGATIVE (NEGATIVE) 08/28/19 10:55 Urine WBC (Auto) 5 /HPF 08/28/19 10:55 Urine RBC (Auto) 12 /HPF 08/28/19 10:55 Urine Bacteria (Auto) TRACE /HPF 08/28/19 10:55 Squamous Epi Cells Auto 2 /HPF 08/28/19 10:55 Urine Mucus (Auto) RARE /LPF 08/28/19 10:55 Urine Ascorbic Acid NEGATIVE (NEGATIVE) 08/28/19 10:55 Urine Opiates Screen NEGATIVE 08/28/19 10:55 Urine Methadone Screen NEGATIVE 08/28/19 10:55 Ur Barbiturates Screen NEGATIVE 08/28/19 10:55 Ur Phencyclidine Scrn NEGATIVE 08/28/19 10:55 Ur Amphetamines Screen NEGATIVE 08/28/19 10:55 U Benzodiazepines Scrn NEGATIVE 08/28/19 10:55 Urine Cocaine Screen NEGATIVE 08/28/19 10:55 U Marijuana (THC) Screen NEGATIVE 08/28/19 10:55 Blood Type B POSITIVE 08/28/19 10:43 Antibody Screen NEGATIVE 08/28/19 10:43 Plan Health Concerns: continue to monitor BP, iron rich foods encouraged Plan of Treatment: d/c to home. f/u at [facility] in one week for incision and BP check Time Spent: Less than 30 Minutes
[2019-08-31] MEDS: FERROUS SULFATE 325 MG TABLET PO SCH (12:25)
[2019-09-03 07:47] LABS: HSV SOURCE BLISTER BREAST
== END 2019-08-31 12:25 | disposition home or self-care (01) | DRG 786 ==
LOC: 2S 05:25
PROVIDERS: ADMIT Obstetrics & Gynecology; ATTEND Obstetrics & Gynecology
PROC: 10D00Z1 Extraction of Products of Conception, Low, Open Approach (ICD-10-PCS; principal; 2019-08-29 07:45)
DX: O34.211 Maternal care for low transverse scar from previous cesarean delivery (principal); O75.3 Other infection during labor; D62 Acute posthemorrhagic anemia; N12 Tubulo-interstitial nephritis, not specified as acute or chronic; O99.214 Obesity complicating childbirth; O16.4 Unspecified maternal hypertension, complicating childbirth; N85.8 Other specified noninflammatory disorders of uterus; O99.013 Anemia complicating pregnancy, third trimester; O14.94 Unspecified pre-eclampsia, complicating childbirth; O99.334 Smoking (tobacco) complicating childbirth; Z3A.39 39 weeks gestation of pregnancy; Z37.0 Single live birth; Z82.49 Family history of ischemic heart disease and other diseases of the circulatory system; Z79.899 Other long term (current) drug therapy
CPT/HCPCS: 36415; 80307; 81001; 85025; 85027; 86850; 86900; 86901; 87529; 90715; 94799; J0131; J0360; J0690; J1100; J1200; J1885; J2250; J2270; J2405; J2550; J2590; J2704; J3010; J3490; J7060; J7120